=== PATIENT | female | born 1995 | race Hispanic/Latino ===

== ENCOUNTER 2021-10-15 10:02 | Day surgery (SDC) | payer OTHER ==
[2021-10-15 11:25] LABS: Fetal Membranes Rupture No Membranes Rupture (No Rupture)
[2021-10-15] MEDS ORDERED: hydrALAZINE 20 MG/ML VIAL SLOW IVP PRN (12:53)
[2021-10-15] MEDS ORDERED: Lactated Ringer's 1,000 ML IV SCH (13:15)
[2021-10-15 13:40] LABS: Bilirubin Neg (Negative); Blood, Urine Negative (Negative); Glucose, Urine (Dipstick) Normal (Negative); Ketone, Urine Negative (Negative); Leukocyte Negative (Negative); Nitrite Negative (Negative); Protein, Urine (Dipstick) Negative (Neg-Trace); Specific Gravity, Urine 1.015 (1.002-1.036); Urobilinogen Normal mg/dL (Less than 2)
[2021-10-15 13:48] LABS: Clarity Clear (Clear)
[2021-10-15 13:52] LABS: Bacteria/HPF Rare-Few HPF (None Seen); Mucous/LPF 1+ LPF (<2+); RBC/HPF None Seen HPF (0-3); Renal Epithelial 0-3 HPF (None Seen); WBC/HPF 0-3 HPF (0-3)
== END 2021-10-15 15:15 | disposition home or self-care (01) ==
LOC: CSHLD/OP 10:02
PROVIDERS: ATTEND Obstetrics & Gynecology
DX: O99.891 Other specified diseases and conditions complicating pregnancy (principal); N89.8 Other specified noninflammatory disorders of vagina; Z3A.35 35 weeks gestation of pregnancy
CPT/HCPCS: 81001; 84112; 87480; 87510; 87660

== ENCOUNTER 2021-10-19 08:07 | Day surgery (SDC) | payer OTHER ==
[2021-10-19 08:54] VITALS: BMI 33.6
[2021-10-19] MEDS ORDERED: hydrALAZINE 20 MG/ML VIAL SLOW IVP PRN (09:26)
[2021-10-19] MEDS ORDERED: Promethazine HCl 25 MG/ML VIAL IM SCH (11:30)
[2021-10-19] MEDS ORDERED: Morphine 10 MG/ML VIAL IM SCH (11:30)
== END 2021-10-19 12:00 | disposition home or self-care (01) ==
LOC: CSHLD/OP 08:07
PROVIDERS: ATTEND Obstetrics & Gynecology
DX: O47.03 False labor before 37 completed weeks of gestation, third trimester (principal); Z3A.36 36 weeks gestation of pregnancy; Z79.82 Long term (current) use of aspirin
CPT/HCPCS: J2270; J2550

== ENCOUNTER 2021-10-31 06:54 | Day surgery (SDC) | payer OTHER ==
[2021-10-31 07:20] VITALS: BMI 34.0
[2021-10-31] MEDS ORDERED: Butorphanol Tartrate 1 MG/ML VIAL SLOW IVP PRN (10:05)
[2021-10-31] MEDS ORDERED: hydrALAZINE 20 MG/ML VIAL SLOW IVP PRN (10:05)
== END 2021-10-31 12:05 | disposition home or self-care (01) ==
LOC: CSHLD/OP 06:54
PROVIDERS: ATTEND Obstetrics & Gynecology
DX: O47.1 False labor at or after 37 completed weeks of gestation (principal); Z3A.38 38 weeks gestation of pregnancy

== ENCOUNTER 2021-11-01 01:45 | Inpatient (IN) | payer OTHER ==
[2021-11-01] MEDS ORDERED: NS w/ Oxytocin 30 units 500 ML ONE (01:55)
[2021-11-01] MEDS ORDERED: Carboprost 250 MCG/ML AMP IM PRN (01:57)
[2021-11-01] MEDS ORDERED: hydrALAZINE 20 MG/ML VIAL SLOW IVP PRN ×2 (01:57→05:01)
[2021-11-01] MEDS ORDERED: Promethazine HCl 25 MG/ML VIAL IM PRN (01:57)
[2021-11-01] MEDS ORDERED: Misoprostol 200 MCG TAB PR PRN (01:57)
[2021-11-01] MEDS ORDERED: Methylergonovine 0.2 MG/ML VIAL IM PRN ×2 (01:57→05:01)
[2021-11-01] MEDS ORDERED: Ondansetron PF 4 MG/2 ML Vial IVP PRN ×2 (01:57→05:01)
[2021-11-01] MEDS ORDERED: Diphenoxylate HCl/Atropine Tablet PO PRN (01:57)
[2021-11-01] MEDS ORDERED: Lidocaine 1% (PF) 30 ML VIAL SC PRN (01:57)
[2021-11-01] MEDS ORDERED: NS w/ Oxytocin 30 units 500 ML IV SCH ×2 (02:00→05:01)
[2021-11-01] MEDS ORDERED: Lactated Ringer's 1,000 ML IV SCH (02:00)
[2021-11-01 02:15] LABS: Hemoglobin 10.3 g/dL (12.0-15.5); Mean Corpuscular HGB CONC 33.2 g/dL (32.0-36.0); Mean Corpuscular Hemoglobin 27.6 pg (27.0-33.0); Mean Corpuscular Volume 83.1 fl (81.6-98.3); Mean Platelet Volume 10.2 fl (7.4-10.4); Platelet Count 298 10x3/uL (150-450); RBC Distribution Width 13.1 % (11.5-14.5); Red Blood Cell (RBC) Count 3.73 10x6/uL (3.90-5.03); White Blood Cell (WBC) Count 14.3 10x3/uL (3.5-10.5)
[2021-11-01 02:49] LABS: Hep B Surf Ag Non-Reactive S/CO (NonReactive)
[2021-11-01 02:51] LABS: Syphilis Antibody Nonreactive (Nonreactive); Syphilis Antibody Index 0.08 S/CO (<1.00 Non-Reactive)
[2021-11-01 02:52] LABS: HBSAg Index 0.16 S/CO (0-0.99)
[2021-11-01] MEDS ORDERED: HYDROcodone/Acetaminophen 5/325 mg Tablet PO PRN ×2 (05:01)
[2021-11-01] MEDS ORDERED: Bisacodyl 10 MG SUPP PR PRN (05:01)
[2021-11-01] MEDS ORDERED: Benzocaine-Menthol 82.5 ML CAN TOP PRN (05:01)
[2021-11-01] MEDS ORDERED: Misoprostol 200 MCG TAB VAG PRN (05:01)
[2021-11-01] MEDS ORDERED: Milk Of Magnesia 30 ML UDCUP PO PRN (05:01)
[2021-11-01] MEDS ORDERED: Lanolin Ointment 7 GM TUBE TOP PRN (05:01)
[2021-11-01 05:07] VITALS: BMI 34.0
[2021-11-01] MEDS: Ibuprofen 800 MG TAB PO SCH ×3 (05:21→21:30)
[2021-11-01 07:19] LABS: SARS-CoV-2 NAA Rapid Test Not Detected (NotDetected)
[2021-11-01] MEDS: Ferrous Sulfate 325 MG TAB PO SCH ×2 (07:42→17:34)
[2021-11-01] MEDS: Docusate 100 MG CAP PO SCH ×2 (09:15→21:30)
[2021-11-02] MEDS: Ibuprofen 800 MG TAB PO SCH (05:56)
[2021-11-02] MEDS: Docusate 100 MG CAP PO SCH (08:28)
[2021-11-02] MEDS: Ferrous Sulfate 325 MG TAB PO SCH (08:28)
[2021-11-02 09:01] VITALS: BP 117/73; TEMP 98.2
== END 2021-11-02 12:35 | disposition home or self-care (01) | DRG 807 ==
LOC: CSHLD 01:45 → CSHPP 06:55
PROVIDERS: ADMIT Obstetrics & Gynecology; ATTEND Obstetrics & Gynecology
PROC: 10E0XZZ Delivery of Products of Conception, External Approach (ICD-10-PCS; principal; 2021-11-01)
DX: O99.344 Other mental disorders complicating childbirth (principal); Z37.0 Single live birth; F32.A Depression, unspecified; Z3A.38 38 weeks gestation of pregnancy; Z79.899 Other long term (current) drug therapy; F17.210 Nicotine dependence, cigarettes, uncomplicated; O99.334 Smoking (tobacco) complicating childbirth; Z20.822 Contact with and (suspected) exposure to COVID-19
CPT/HCPCS: 85027; 86780; 86850; 86900; 86901; 87340; 99285; U0002

== ENCOUNTER 2024-04-06 16:11 | Inpatient (IN) | payer OTHER ==
[2024-04-06 16:30] VITALS: BMI 34.5
[2024-04-06] MEDS ORDERED: Tranexamic Acid 1,000 MG/10 ML VIAL IVP PRN (16:39)
[2024-04-06] MEDS ORDERED: Ibuprofen 800 MG TAB PO PRN (16:39)
[2024-04-06] MEDS ORDERED: fentaNYL 50 mcg/mL 1 mL Vial SLOW IVP PRN (16:39)
[2024-04-06] MEDS ORDERED: Diphenoxylate HCl/Atropine Tablet PO PRN ×2 (16:39)
[2024-04-06] MEDS ORDERED: hydrALAZINE 20 MG/ML VIAL SLOW IVP PRN (16:39)
[2024-04-06] MEDS ORDERED: Ondansetron PF 4 MG/2 ML Vial IVP PRN ×2 (16:39→19:18)
[2024-04-06] MEDS ORDERED: Lidocaine 1% (PF) 30 ML VIAL SC PRN (16:39)
[2024-04-06] MEDS ORDERED: Promethazine HCl 25 MG/ML VIAL IM PRN ×2 (16:39→19:18)
[2024-04-06] MEDS ORDERED: Acetaminophen 500 MG TAB PO PRN (16:39)
[2024-04-06] MEDS ORDERED: Misoprostol 200 MCG TAB PR PRN (16:39)
[2024-04-06] MEDS ORDERED: Methylergonovine 0.2 MG/ML VIAL IM PRN (16:39)
[2024-04-06] MEDS ORDERED: Carboprost 250 MCG/ML AMP IM PRN (16:39)
[2024-04-06] MEDS ORDERED: Oxytocin 30 units/NS 500 ML 500 ML IV SCH (16:45)
[2024-04-06] MEDS ORDERED: Penicillin G Potassium 5 MILL.UNITS in Sodium Chloride 0.9% 100 ML IVPB SCH (18:00)
[2024-04-06 18:05] LABS: Hemoglobin 12.1 g/dL (12.0-15.5); Mean Corpuscular HGB CONC 35.6 g/dL (32.0-36.0); Mean Corpuscular Hemoglobin 31.3 pg (27.0-33.0); Mean Corpuscular Volume 88.1 fL (81.6-98.3); Mean Platelet Volume 10.7 fL (7.4-10.4); Platelet Count 270 10x3/uL (150-450); RBC Distribution Width 12.3 % (11.5-14.5); Red Blood Cell (RBC) Count 3.86 10x6/uL (3.90-5.03); White Blood Cell (WBC) Count 9.5 10x3/uL (3.5-10.5)
[2024-04-06 18:35] LABS: Syphilis Antibody Nonreactive (Nonreactive); Syphilis Antibody Index 0.13 S/CO (<1.00 Non-Reactive)
[2024-04-06 18:37] LABS: HBsAg Index 0.19 S/CO (0-0.99); Hep B Surf Ag - L&D Non-Reactive S/CO (NonReactive)
[2024-04-06] MEDS ORDERED: Naloxone HCl 0.4 mg/ml Vial IVP PRN ×2 (19:18)
[2024-04-06] MEDS ORDERED: diphenhydrAMINE 50 MG/ML VIAL IVP PRN (19:18)
[2024-04-06] MEDS ORDERED: Lactated Ringer's 500 ML IV PRN (19:18)
[2024-04-06] MEDS ORDERED: Moisturizing Cream (Eucerin) 113 GM JAR TOP PRN (19:18)
[2024-04-06] MEDS ORDERED: ePHEDrine Sulfate 50 MG/10 ML VIAL SLOW IVP PRN (19:18)
[2024-04-06] MEDS ORDERED: Communication Order-Pharmacy FS SCH (19:30)
[2024-04-06] MEDS ORDERED: fentaNYL 2 mcg/Ropivacaine 0.2% Epidural 100 ML CADD EPIDURAL SCH (19:30)
[2024-04-06] MEDS: fentaNYL/Ropivacaine Epidural 100 ML ONE (19:41)
[2024-04-06] MEDS: Lactated Ringer's 1,000 ML IV SCH (19:54)
[2024-04-06] MEDS: Penicillin G 2.5 MILL.units 2.5 MILL.UNITS in Premix 1 BAG IVPB SCH (21:23)
[2024-04-06] MEDS: Acetaminophen 325 MG TAB PO PRN (22:43)
[2024-04-06] MEDS: Oxytocin 30 units/NS 500 ML 500 ML IV SCH (22:44)
[2024-04-07] MEDS: Oxytocin 30 units/NS 500 ML 500 ML IV SCH (00:54)
[2024-04-07] MEDS ORDERED: Bisacodyl 10 MG SUPP PR PRN (02:44)
[2024-04-07] MEDS ORDERED: Promethazine HCl 25 MG/ML VIAL IM PRN (02:44)
[2024-04-07] MEDS ORDERED: Preparation H Ointment 28 GM TUBE PR PRN (02:44)
[2024-04-07] MEDS ORDERED: Methylergonovine 0.2 MG/ML VIAL IM PRN (02:44)
[2024-04-07] MEDS ORDERED: diphenhydrAMINE 25 MG CAP PO PRN (02:44)
[2024-04-07] MEDS ORDERED: Ondansetron PF 4 MG/2 ML Vial IVP PRN (02:44)
[2024-04-07] MEDS ORDERED: Oxytocin 30 units/NS 500 ML 500 ML IV SCH (02:44)
[2024-04-07] MEDS ORDERED: hydrALAZINE 20 MG/ML VIAL SLOW IVP PRN (02:44)
[2024-04-07] MEDS ORDERED: Milk Of Magnesia 30 ML UDCUP PO PRN (02:44)
[2024-04-07] MEDS ORDERED: Benzocaine-Menthol 82.5 ML CAN TOP PRN (02:44)
[2024-04-07] MEDS ORDERED: Lanolin Ointment 7 GM TUBE TOP PRN (02:44)
[2024-04-07] MEDS ORDERED: Misoprostol 200 MCG TAB VAG PRN (02:44)
[2024-04-07] MEDS: Penicillin G Potassium 5 MILL.UNITS VIAL ONE (06:09)
[2024-04-07] MEDS: Boostrix 0.5 ML (Tdap) VIAL (>/=7 yrs of age) IM ONE (06:10)
[2024-04-07] MEDS: Ibuprofen 800 MG TAB PO SCH (06:11)
[2024-04-07] MEDS: Ferrous Sulfate 325 MG TAB PO SCH (07:21)
[2024-04-07] MEDS: Docusate 100 MG CAP PO SCH (08:32)
[2024-04-07] MEDS: Prenatal Vitamin 1 TAB PO SCH (08:32)
[2024-04-08 07:59] VITALS: TEMP 97.9
[2024-04-08 11:11] VITALS: BP 113/65
== END 2024-04-08 11:52 | disposition home or self-care (01) | DRG 807 ==
LOC: CSHLD/OP 16:11 → CSHLD 16:55 → CSHPP 04-07 02:35
PROVIDERS: ADMIT Family Medicine; ATTEND Family Medicine
PROC: 10E0XZZ Delivery of Products of Conception, External Approach (ICD-10-PCS; principal; 2024-04-07)
DX: O99.824 Streptococcus B carrier state complicating childbirth (principal); Z37.0 Single live birth; Z3A.38 38 weeks gestation of pregnancy; Z79.82 Long term (current) use of aspirin; Z15.89 Genetic susceptibility to other disease
CPT/HCPCS: 51702; 85027; 86780; 86850; 86900; 86901; 87340; 99285; J2540; J2590; J7120